=== PATIENT | male | born 1955 | race Caucasian/White ===

== ENCOUNTER 2017-08-06 14:33 | Inpatient (IN) | payer BC ==
[~2017-08-06] VITALS: Ht 167.6 cm; Wt 86.0 kg
[~2017-08-06 14:33] MED LIST: AMBIEN CR12.5 MG PO; ASMANEX TW200 MICRO1 IH; BENICAR20 MG PO; CARDIZEM CD120 MG PO; CARVEDILOL12.5 MG PO; CEFTIN500 MG PO; CELEBREX200 MG PO; CHANTIX1 MG PO; ERGOCALCIF50000 UNIT PO; FAMCICLOVIR500 MG PO; FEOSOL325 MG PO; FERROUS SULFAT325 MG PO; FLOMAX0.4 MG PO; GLUCOPHAGE XR,500 MG PO; LANTUS 10100 UNITS/ SC; LANTUS100 UNIT/1 SQ; LEVAQUIN500 MG PO; LINZESS145 MCG PO; LIPITOR80 MG PO; LYRICA75 MG PO; MELOXICAM15 MG PO; MELOXICAM7.5 MG PO; MEN 50 PLUS MU1 EACH PO; MEN'S 50+ DAIL1 EACH PO; MILLIPRED DP5 M1 PO; OMEPRAZOLE20 MG PO; PERCOCET 10/1 TABLET PO; PLAVIX75 MG PO; PROAIR HFA8.5 GM IH; PROTONIX40 MG PO; RESTORIL30 MG PO; SIMVASTATIN40 MG PO; SPIRIVA1 INHALATI IH; TAMSULOSIN HCL0.4 MG PO; TRAMADOL HCL50 MG PO; TUMS500 MG PO; ULTRAM50 MG PO; VICODIN ES 71 TABLET PO; VITAMIN D31000 UNI2 PO; VITAMIN D32000 UNI1 PO; VITAMIN D50000 UNIT PO; ZESTRIL40 MG PO; ZOLPIDEM TARTRAT5 MG PO
[2017-08-06 16:24] LABS: APPEARANCE CLEAR ((CLEAR)); BILIRUBIN NEGATIVE; BLOOD SMALL; COLOR YELLOW ((YELLOW)); GLUCOSE (STRIP) >=500; KETONES NEGATIVE; LEUKOCYTES NEGATIVE; NITRITE NEGATIVE; PROTEIN (STRIP) NEGATIVE; SPECIFIC GRAVITY 1.027 (1.000-1.030); UROBILINOGEN 0.2 MG/DL (0.2-1.0)
[2017-08-06 16:31] LABS: HEMATOCRIT 43.4 % (38.0-50.0); HEMOGLOBIN 15.1 G/DL (12.5-16.6); MCH 30.9 PG (29.0-34.0); MCHC 34.8 G/DL (30.0-36.0); MCV 88.9 FL (86-99); PLATELET COUNT 257 K/uL (156-360); RED BLOOD COUNT 4.88 M/uL (4.00-5.50); WHITE BLOOD COUNT 22.6 K/uL (4.1-10.2)
[2017-08-06 16:34] LABS: CARBON DIOXIDE (BICARBONATE) 28.3 MEQ/L (20-31)
[2017-08-06 16:56] LABS: CHLORIDE 84 MEQ/L (99-109); MAGNESIUM 2.1 mg/dl (1.3-2.7); POTASSIUM 4.8 MEQ/L (3.7-5.4); SODIUM 121 MEQ/L (136-147)
[2017-08-06] MEDS ORDERED: PERCOCET 10/1 TABLET PO (17:55)
[2017-08-06] MEDS ORDERED: SPIRIVA RESPIMAT4 GM IH (17:59)
[2017-08-06] MEDS ORDERED: FARXIGA5 MG PO (17:59)
[2017-08-06] MEDS ORDERED: MOVANTIK25 MG PO (17:59)
[2017-08-06] MEDS ORDERED: OXYCONTIN20 MG PO (18:00)
[2017-08-06] MEDS ORDERED: DIFLUCAN100 MG PO ×2 (18:00→18:01)
[2017-08-06 18:01] LABS: CREATININE 1.7 MG/DL (0.6-1.3); GFR ESTIMATE (CALCULATED) 44 mL/min/ (58.99-99999); UREA NITROGEN (BUN) 37 mg/dL (9-23)
[2017-08-06] MEDS ORDERED: LYRICA150 MG PO (18:01)
[2017-08-06 18:02] LABS: GLUCOSE 883 mg/dL (70-99)
[2017-08-06 19:45] LABS: BASE EXCESS -0.5 mEq/L (-3 to +3); BICARBONATE 24.2 mEq/L (22-26); CARBOXY HGB 3.4 % (0-5); METHEMOGLOBIN 0.2 % (0-1.5); PCO2 39 mm Hg (35-45); PO2 52 mm Hg (80-100)
[2017-08-06 19:46] LABS: COMMENTS - BLOOD GASES A+C+; FI02 21 %; SITE RR
[2017-08-06 20:22] LABS: CHLORIDE 95 mEq/L (99-109); POTASSIUM 4.7 mEq/L (3.7-5.4)
[2017-08-06 20:24] LABS: GLUCOSE 386 mg/dL (70-99)
[2017-08-06 20:25] LABS: SODIUM 131 mEq/L (136-147)
[2017-08-06 20:27] LABS: CREATININE 1.6 mg/dL (0.6-1.3); GFR ESTIMATE (CALCULATED) 47 mL/min/ (58.99-99999)
[2017-08-06 20:28] LABS: UREA NITROGEN (BUN) 31 mg/dL (9-23)
[2017-08-06 20:33] LABS: HIGH-SENS C-REACTIVE PROTEIN 5.38 MG/DL (0.02-0.20)
[2017-08-06 20:37] VITALS: BP 175/87
[2017-08-06 21:00] VITALS: BP 85/76
[2017-08-06 22:00] VITALS: BP 149/75
[2017-08-06 23:00] VITALS: BP 130/66
[2017-08-07] VITALS (20 sets, daily range): BP systolic 99–156; BP diastolic 56–76
[2017-08-07 01:57] LABS: CHLORIDE 100 mEq/L (99-109); POTASSIUM 3.8 mEq/L (3.7-5.4); SODIUM 132 mEq/L (136-147)
[2017-08-07 01:59] LABS: GLUCOSE 216 mg/dL (70-99)
[2017-08-07 02:02] LABS: CREATININE 1.2 mg/dL (0.6-1.3); GFR ESTIMATE (CALCULATED) > 59 mL/min/ (58.99-99999); PHOSPHORUS 1.8 mg/dL (2.5-4.9)
[2017-08-07 02:03] LABS: UREA NITROGEN (BUN) 26 mg/dL (9-23)
[2017-08-07 05:09] LABS: CHLORIDE 102 mEq/L (99-109); POTASSIUM 4.3 mEq/L (3.7-5.4); SODIUM 132 mEq/L (136-147)
[2017-08-07 05:11] LABS: GLUCOSE 171 mg/dL (70-99)
[2017-08-07 05:15] LABS: CREATININE 1.3 mg/dL (0.6-1.3); GFR ESTIMATE (CALCULATED) > 59 mL/min/ (58.99-99999); PHOSPHORUS 2.4 mg/dL (2.5-4.9)
[2017-08-07 05:16] LABS: UREA NITROGEN (BUN) 26 mg/dL (9-23)
[2017-08-07 09:02] LABS: POTASSIUM 4.4 MEQ/L (3.7-5.4); SODIUM 132 MEQ/L (136-147)
[2017-08-07 09:04] LABS: CHLORIDE 101 MEQ/L (99-109)
[2017-08-07 09:08] LABS: CREATININE 1.2 MG/DL (0.6-1.3); GFR ESTIMATE (CALCULATED) > 59 mL/min/ (58.99-99999); GLUCOSE 210 mg/dL (70-99); PHOSPHORUS 2.7 mg/dL (2.5-4.9); UREA NITROGEN (BUN) 26 mg/dL (9-23)
[2017-08-07 10:18] LABS: HEMOGLOBIN A1c (GLYCOHEMOGLOB) 12.3 % (Below 5.7)
[2017-08-07 12:42] LABS: BASOPHIL (%) 0.1 % (0-1); EOSINOPHIL (%) 0 % (0-5); HEMATOCRIT 37.1 % (38.0-50.0); IMMATURE GRANULOCYTE (%) 0.4 % (0.0-0.7); LYMPHOCYTE (%) 6.8 % (15-42); LYMPHOCYTE COUNT 1.1 K/uL (1.0-2.8); MCH 29.8 PG (29.0-34.0); MCHC 33.7 G/DL (30.0-36.0); MCV 88.5 FL (86-99); MONOCYTE (%) 1.2 % (3-12); MONOCYTE COUNT 0.2 K/uL (0-0.8); NEUTROPHIL (%) 91.5 % (45-76); NEUTROPHIL COUNT 15.1 K/uL (1.8-6.4); PLATELET COUNT 195 K/uL (156-360); RBC DIS.WIDTH-CV 12.4 % (11.8-14.6); RED BLOOD COUNT 4.19 M/uL (4.00-5.50); WHITE BLOOD COUNT 16.4 K/uL (4.1-10.2)
[2017-08-07 12:44] LABS: HEMOGLOBIN 12.5 G/DL (12.5-16.6)
[2017-08-07 12:52] LABS: CHLORIDE 100 MEQ/L (99-109); POTASSIUM 3.9 MEQ/L (3.7-5.4); SODIUM 131 MEQ/L (136-147)
[2017-08-07 12:57] LABS: CREATININE 1.2 MG/DL (0.6-1.3); GFR ESTIMATE (CALCULATED) > 59 mL/min/ (58.99-99999); GLUCOSE 207 mg/dL (70-99); PHOSPHORUS 2.4 mg/dL (2.5-4.9); UREA NITROGEN (BUN) 23 mg/dL (9-23)
[2017-08-08] VITALS (7 sets, daily range): BP systolic 109–156; BP diastolic 54–78
[2017-08-08 12:44] LABS: HEMOGLOBIN 12.9 G/DL (12.5-16.6); MCH 30.6 PG (29.0-34.0); MCHC 33.1 G/DL (30.0-36.0); PLATELET COUNT 237 K/uL (156-360); RBC DIS.WIDTH-CV 12.9 % (11.8-14.6); RBC DIS.WIDTH-SD 43.6 % (39-53); RED BLOOD COUNT 4.21 M/uL (4.00-5.50); WHITE BLOOD COUNT 20.8 K/uL (4.1-10.2)
[2017-08-08 12:46] LABS: ALBUMIN 3.3 G/DL (3.2-4.8); ALKALINE PHOSPHATASE 89 IU/L (3-129); ALT (GPT) 23 IU/L (3-49); AST (GOT) 18 IU/L (2-34); CHLORIDE 100 MEQ/L (99-109); CREATININE 1.2 MG/DL (0.6-1.3); GFR ESTIMATE (CALCULATED) > 59 mL/min/ (58.99-99999); MCV 92.6 FL (86-99); SODIUM 131 MEQ/L (136-147); TOTAL BILIRUBIN 0.3 MG/DL (0.0-1.0); TOTAL PROTEIN 5.7 G/DL (6.4-8.3); UREA NITROGEN (BUN) 29 mg/dL (9-23)
[2017-08-08 12:47] LABS: GLUCOSE 447 mg/dL (70-99); POTASSIUM 4.9 MEQ/L (3.7-5.4)
[2017-08-09 07:12] LABS: BASOPHIL (%) 0.1 % (0-1); EOSINOPHIL (%) 0 % (0-5); HEMATOCRIT 39.9 % (38.0-50.0); HEMOGLOBIN 12.9 G/DL (12.5-16.6); IMMATURE GRANULOCYTE (%) 0.8 % (0.0-0.7); LYMPHOCYTE (%) 12.2 % (15-42); LYMPHOCYTE COUNT 2.7 K/uL (1.0-2.8); MCH 30.1 PG (29.0-34.0); MCHC 32.3 G/DL (30.0-36.0); MCV 93.2 FL (86-99); MONOCYTE (%) 7.6 % (3-12); MONOCYTE COUNT 1.7 K/uL (0-0.8); NEUTROPHIL (%) 79.3 % (45-76); NEUTROPHIL COUNT 17.7 K/uL (1.8-6.4); PLATELET COUNT 227 K/uL (156-360); RBC DIS.WIDTH-CV 13.1 % (11.8-14.6); RBC DIS.WIDTH-SD 45.1 % (39-53); RED BLOOD COUNT 4.28 M/uL (4.00-5.50); WHITE BLOOD COUNT 22.3 K/uL (4.1-10.2)
[2017-08-09 07:33] LABS: CHLORIDE 106 MEQ/L (99-109); CREATININE 1.3 MG/DL (0.6-1.3); GFR ESTIMATE (CALCULATED) > 59 mL/min/ (58.99-99999); POTASSIUM 5.4 MEQ/L (3.7-5.4); SODIUM 136 MEQ/L (136-147); UREA NITROGEN (BUN) 28 mg/dL (9-23)
[2017-08-09 07:41] LABS: GLUCOSE 89 mg/dL (70-99)
[2017-08-09 08:17] VITALS: BP 165/69
[2017-08-09] MEDS ORDERED: PREDNISONE10 MG PO (10:42)
== END 2017-08-09 12:48 | disposition home or self-care (01) | DRG 194 ==
LOC: EME 14:33 → 4WEST 18:59 → EDOF 18:59 → ENRESERV 19:03 → 4WEST 20:29 → ENRESERV 08-07 16:28 → 2EASTP 08-07 20:11
PROVIDERS: Emergency Medicine; Emergency Medicine Emergency Medical Services; Hospitalist; Internal Medicine
DX: J13 Pneumonia due to Streptococcus pneumoniae (principal); N17.9 Acute kidney failure, unspecified; E11.65 Type 2 diabetes mellitus with hyperglycemia; E72.51 Non-ketotic hyperglycinemia; J43.9 Emphysema, unspecified; B37.0 Candidal stomatitis; K21.9 Gastro-esophageal reflux disease without esophagitis; E87.1 Hypo-osmolality and hyponatremia; I10 Essential (primary) hypertension; E87.0 Hyperosmolality and hypernatremia; I87.2 Venous insufficiency (chronic) (peripheral); T38.0X5A Adverse effect of glucocorticoids and synthetic analogues, initial encounter; E86.0 Dehydration; E87.2 Acidosis; R63.1 Polydipsia; M19.90 Unspecified osteoarthritis, unspecified site; N40.0 Benign prostatic hyperplasia without lower urinary tract symptoms; Z87.442 Personal history of urinary calculi; Z98.84 Bariatric surgery status; Z87.891 Personal history of nicotine dependence; Z86.73 Personal history of transient ischemic attack (TIA), and cerebral infarction without residual deficits; Z82.0 Family history of epilepsy and other diseases of the nervous system
CPT/HCPCS: 36415; 36600; 71045; 80048; 80048 91; 80053; 81003; 82010; 82310; 82803; 82948; 83036; 83605; 83735; 84100; 84145 90; 85025; 85027; 86141; 87040; 87086; 87641; 93005; 94640; 94640 76; 94799; 99202; 99281; 99285; J0456; J0696; J1450; J1815; J2405; J2920; J7030; J7050; J7120; J7512